=== PATIENT | female | born 1970 | race American Indian/Alaskan Native ===

== ENCOUNTER 2017-04-14 22:49 | Emergency (ER) | payer SELFPAY ==
--- NOTE | 2017-04-14 23:38 | Emergency Department Report ---
HPI - General Chief Complaint: Chest Pain Time Seen by Provider: 04/14/17 23:36 - HPI HPI: The patient is a 46-year-old female whom presents for evaluation of chest pain. The patient reports chest pain for the past 2 days, night sweats 10 in severity, aching in quality, constant since onset, radiating to the back. The patient denies fever, trauma to the chest, syncope, hemoptysis, unilateral leg swelling, oral contraceptive use, recent immobilization, history of DVT or PE, recent cancer. ED Past Medical Hx - Past Medical History Previous Medical History?: Yes Hx Hypertension: No Hx Heart Attack/AMI: No Hx Congestive Heart Failure: No Hx Diabetes: No Hx Deep Vein Thrombosis: No Hx Renal Disease: No Hx Sickle Cell Disease: No Hx Arthritis: Yes Hx Seizures: No Hx Psychiatric Treatment: No Hx Asthma: No Hx COPD: No Hx HIV: No Additional medical history: HYPOKALEMIA - Surgical History Past Surgical History?: Yes Additional Surgical History: x 2 - Social History Smoking Status: Current Every Day Smoker Substance Use Type: None - Medications Home Medications: Home Medications Medication Instructions Recorded Confirmed Last Taken Type Hydrochlorothiazide [HCTZ] 25 mg PO QDAY #30 tablet 04/15/17 Unknown Rx traMADol [Ultram 50 MG tab] 50 mg PO Q6HR PRN #20 tablet 04/15/17 Unknown Rx ED Review of Systems ROS: Stated complaint: CHEST PAIN Other details as noted in HPI Constitutional: denies: fever ENT: denies: throat or neck pain Respiratory: denies: cough, shortness of breath Cardiovascular: reports chest pain Endocrine: denies unexplained weight loss or gain Gastrointestinal: denies: abdominal pain, nausea Genitourinary: denies: dysuria Musculoskeletal: denies: leg swelling Skin: denies: rash Neurological: denies: headache Hematological/Lymphatic: denies: easy bleeding or easy bruising Psych: denies sadness or hopelessness Physical Exam - Physical Exam Vital Signs: Vital Signs 04/14/17 23:05 Temperature 97.4 F L Pulse Rate 90 Blood Pressure 141/91 O2 Sat by Pulse 99 Oximetry Physical Exam: General: well-nourished, well-developed, no acute distress Head: Normocephalic, atraumatic Eyes: normal sclera ENT: Mucous membranes are pink and moist Neck: trachea midline, neck supple, No neck stiffness, no cervical adenopathy Respiratory: Breath sounds equal bilaterally, no wheezing, rales, or rhonchi Cardio: S1 and S2 present, no murmurs, rubs, gallops, capillary refill is brisk Abdomen: Normoactive bowel sounds, soft abdomen, no rigidity, no guarding or rebound tenderness Musc: No pitting edema Skin: No rash Neuro: no facial drooping, normal speech Psych: Normal affect ED Course Vital Signs 04/14/17 23:05 Temperature 97.4 F L Pulse Rate 90 Blood Pressure 141/91 O2 Sat by Pulse 99 Oximetry ED Medical Decision Making - Lab Data Result diagrams: 04/14/17 23:33 04/14/17 23:33 - Medical Decision Making The patient was seen and examined by myself. The patient is placed on a real estate professor and continuous pulse ox. On initial evaluation, the patient was found to be in no distress. EKG was negative for findings suggestive of acute cardiac infarct. Labs and imaging are obtained. The patient is given IV morphine for her chest pain and labetalol for elevated blood pressure. Chest x-ray is negative for pneumothorax, focal consolidation, pulmonary vascular congestion, pleural effusion, or other obvious acute cardiopulmonary disease process. Lab results were non-concerning including levels of troponin, WBC, hemoglobin, hematocrit, electrolytes, renal function. The patient was reevaluated and reported that their symptoms were markedly improved. As the patient has a JOSEPH risk score less than 2, and a well's score less than 2, the patient is at low risk of ACS or pulmonary emboli etiology of their symptoms. The patient is stable for discharge with outpatient follow-up. The patient is given follow-up and return instructions. The patient expressed understanding and agreed with the plan. The patient is discharged in stable condition. Critical care attestation.: If time is entered above; I have spent that time in minutes in the direct care of this critically ill patient, excluding procedure time. ED Disposition Clinical Impression: Acute chest pain, Hypertensive urgency Disposition: DISCHARGED TO HOME OR SELFCARE Is pt being admited?: No Does the pt Need Aspirin: No Condition: Stable Instructions: Chest Pain (ED), Hypertension (ED) Prescriptions: Hydrochlorothiazide [HCTZ] 25 mg PO QDAY #30 tablet traMADol [Ultram 50 MG tab] 50 mg PO Q6HR PRN #20 tablet PRN Reason: Pain Referrals: PRIMARY CARE, [Primary Care Provider] - 3-5 Days SALLIE ASTUDILLO MD [Staff Physician] - 3-5 Days Time of Disposition: 23:57
[2017-04-14 23:54] LABS: Basophils % (Auto) 0.1 % (0.0-1.8); Eosinophils % (Auto) 0.3 % (0.0-4.3); Hematocrit 33.7 % (30.3-42.9); Hemoglobin 10.7 gm/dl (10.1-14.3); Mean Corpuscular HGB Conc 32 % (30-34); Platelet Count 300 K/mm3 (140-440); Red Blood Count 5.05 M/mm3 (3.65-5.03); Red Cell Distribution Width 16.4 % (13.2-15.2); White Blood Count 7.2 K/mm3 (4.5-11.0)
[2017-04-14 23:55] LABS: Mean Corpuscular Hemoglobin 21 pg (28-32); Mean Corpuscular Volume 67 fl (79-97)
[2017-04-15 00:02] LABS: INR 1.16 (0.87-1.13)
[2017-04-15 00:15] LABS: Creatine Kinase MB 1.6 ng/mL (0.0-4.0)
[2017-04-15 00:18] LABS: Alanine Aminotransferase 5 units/L (7-56); Albumin 3.4 g/dL (3.9-5); Albumin/Globulin Ratio 0.8 %; Alkaline Phosphatase 73 units/L (35-129); Anion Gap 19 mmol/L; Blood Urea Nitrogen 11 mg/dL (7-17); Calcium 8.9 mg/dL (8.4-10.2); Carbon Dioxide 23 mmol/L (22-30); Chloride 102.1 mmol/L (98-107); Creatine Kinase 48 units/L (30-135); Glucose 119 mg/dL (65-100); Lipase 20 units/L (13-60); Potassium 3.6 mmol/L (3.6-5.0); Sodium 140 mmol/L (137-145); Total Protein 7.7 g/dL (6.3-8.2)
[2017-04-15 00:29] LABS: Bilirubin,Direct < 0.2 mg/dL (0-0.2); Bilirubin,Indirect 0.1 mg/dL
[2017-04-15] MEDS ORDERED: ZOFRAN ODT PO ONE (00:39)
[2017-04-15] MEDS ORDERED: MORPHINE IM ONE (00:39)
[2017-04-15] MEDS ORDERED: ZOFRAN IV ONE (00:49)
[2017-04-15] MEDS ORDERED: MORPHINE IV ONE (00:49)
[2017-04-15] MEDS ORDERED: LIDOCAINE VISCOUS 2% PO ONE (01:08)
[2017-04-15] MEDS ORDERED: ALUM-MAG HYDROX-SIMETH 200-200-20MG/5ML PO ONE (01:08)
[2017-04-15] MEDS ORDERED: PEPCID PO ONE (01:09)
[2017-04-15 01:26] LABS: Bacteria,Urine 1+ /HPF (Negative); Bilirubin,Urine NEG (Negative); Blood,Urine NEG (Negative); Ketones,Urine NEG (Negative); Leukocyte Esterase,Urine NEG (Negative); Mucus,Urine 2+ /HPF; Nitrite,Urine NEG (Negative)
[2017-04-15] MEDS ORDERED: NORMODYNE IV ONE (02:28)
[2017-04-15 04:30] VITALS: BP 161/99
--- NOTE | 2017-04-15 08:18 | XRay Report ---
CHEST 2 VIEWS INDICATION: Chest pain for 2 days. COMPARISON: None similar. FINDINGS: Frontal and lateral chest radiographs demonstrate slight exaggerated, though grossly normal cardiomediastinal silhouette, given the inspiration. Slight right basilar atelectasis. No large pleural effusions or CHF. EKG leads. Demineralized bones with multilevel thoracic spine degenerative changes, including mild curvature. CONCLUSION: No significant acute chest process, as described. Thank you for the opportunity to participate in this patient's care.
== END 2017-04-15 04:30 | disposition home or self-care (01) ==
LOC: ED 22:49
DX: R07.9 Chest pain, unspecified (principal); I10 Essential (primary) hypertension; F17.200 Nicotine dependence, unspecified, uncomplicated
CPT/HCPCS: 36415; 71020; 80053; 80074; 81001; 82550; 82553; 83690; 84484; 85025; 85610; 85730; 93005; 93010; 96374; 96375; 99285; J2270; J2405